=== PATIENT | male | born 1965 | race Caucasian/White ===

== ENCOUNTER 2021-06-21 14:39 | Emergency (ER) | payer BC ==
[~2021-06-21 14:39] MED LIST: IBU400 MG PO
== END 2021-06-21 18:43 | disposition expired ==
LOC: ER1 14:39
DX: I46.9 Cardiac arrest, cause unspecified (principal); I10 Essential (primary) hypertension
CPT/HCPCS: 31500; 92950; 99285; J0171; J0461; J2997; J7070